=== PATIENT | female | born 1965 | race Caucasian/White ===

== ENCOUNTER 2017-01-13 10:25 | Day surgery (SDC) | payer BC ==
[~2017-01-13 10:25] MED LIST: Lactated Ringers 1,000 ML IV SCH; Sodium Chloride 0.9% 10 ML Syringe FLUSH PRN
[2017-01-13] MEDS ORDERED: Propofol 200 MG/20 ML SDV ONE ×4 (11:41→13:23)
[2017-01-13] MEDS ORDERED: fentaNYL 100 MCG/2 ML SDV ONE ×2 (11:41→13:01)
[2017-01-13 14:15] VITALS: BP 117/78
--- NOTE | 2017-01-14 08:34 | OR ---
DATE OF SURGERY: 01/13/2017. REFERRING PROVIDER: Britt Saldivar PA-C, Jourdan Leonardo. PRE-OPERATIVE DIAGNOSES: 1. Screening colonoscopy. This is the patient's first colonoscopy. There is a positive family history of colon polyps in father. 2. Chronic diarrhea for the past 1 to 2 months. POST-OPERATIVE DIAGNOSES: 1. Minimal left-sided diverticulosis, not acutely inflamed. 2. Minimal hemorrhoids. 3. Otherwise, normal-appearing colon mucosa. Random biopsies were taken given the patient's history of chronic diarrhea. PROCEDURE: Colonoscopy with random biopsies of colon mucosa. SURGEON: Kang Zuluaga M.D. ANESTHESIA: Monitored anesthesia care. BOWEL PREP: Good. DESCRIPTION OF PROCEDURE: Jewels is a 51-year-old female, who was brought to the endoscopy suite after discussing risks and benefits of the procedure. Informed consent was obtained for conscious sedation and colonoscopy with or without biopsy and/or polypectomy. We also discussed possibility of missed lesions. Pre-procedure exam was unremarkable. IV, oxygen, and monitors were placed. The patient was placed in the left lateral decubitus position. Sedation was administered and a digital rectal exam was performed which was unremarkable. Colonoscope was passed into the rectum and slowly advanced all the way to the cecum. Cecum was viewed and photographed. The colonoscope was slowly withdrawn and the mucosa was closed observed in a direct circumferential manner. The ascending colon was unremarkable. The transverse colon was unremarkable. The descending colon was unremarkable. The sigmoid colon did reveal some minimal diverticulosis, not acutely inflamed. Retroflexion was performed and rectal mucosa revealed some minimal hemorrhoids, not acutely inflamed. Scope was removed. The patient tolerated the procedure well. The patient was monitored until that baseline status. Discharge instructions were reviewed and the patient was discharged in good condition. COMPLICATIONS: None. TOTAL TIME: 26 minutes. ESTIMATED BLOOD LOSS: About 1 mL. RECOMMENDATIONS/FOLLOW-UP: We will await results of random biopsies and then we will send a letter with these results and when to follow up. The patient is at slightly higher risk than average patient given the positive family history of polyps. We may consider slightly earlier followup in 10 years. I would like to kindly thank Britt Saldivar for this referral. DMB: 01/13/2017 13:59:29 MODL: 01/13/2017 21:40:47 /[id number]
== END 2017-01-13 15:14 | disposition home or self-care (01) ==
LOC: VM.SDS 10:25
PROVIDERS: ATTEND Family Medicine
DX: Z12.11 Encounter for screening for malignant neoplasm of colon (principal); K57.30 Diverticulosis of large intestine without perforation or abscess without bleeding; K64.9 Unspecified hemorrhoids; R53.83 Other fatigue; F41.9 Anxiety disorder, unspecified; R19.7 Diarrhea, unspecified; H81.10 Benign paroxysmal vertigo, unspecified ear; G89.29 Other chronic pain; E66.9 Obesity, unspecified; M54.42 Lumbago with sciatica, left side; M54.41 Lumbago with sciatica, right side; F17.210 Nicotine dependence, cigarettes, uncomplicated; Z83.79 Family history of other diseases of the digestive system
CPT/HCPCS: 45380; J2704; J3010; J7120